=== PATIENT | male | born 1970 | race African-American/Black ===

== ENCOUNTER 2018-12-31 10:14 | Outpatient (CLI) | payer BC ==
--- NOTE | 2018-12-31 10:48 | XRay Report ---
CERVICAL SPINE, 3 views: History: Pain. There is reversal of the normal cervical lordosis. Mild degenerative disc disease is identified at C5-6 and C6-7. The remaining disc levels and facet joints are unremarkable. There is no evidence for fracture, subluxation or bone lesion. The prevertebral soft tissues are unremarkable. IMPRESSION: Loss of cervical lordosis suggesting muscle spasm vs. variation in patient positioning. Mild degenerative disc disease at C5-6 and C6-7.
== END 2018-12-31 10:15 | disposition home or self-care (01) ==
LOC: XRAY 10:14
PROVIDERS: ATTEND Internal Medicine
DX: M50.323 Other cervical disc degeneration at C6-C7 level (principal)
CPT/HCPCS: 72040